=== PATIENT | male | born 1950 | race Caucasian/White ===

== ENCOUNTER 2016-09-17 15:56 | Emergency (ER) | payer MEDICARE, OTHER ==
[~2016-09-17] VITALS: Ht 189.2 cm; Wt 102.0 kg
[~2016-09-17 15:56] MED LIST: ATRV10T PO; HYDR12.55 PO; LOSA100T29 PO; METF500T4 PO; OMEP20CA11 PO; PARO20TA5 PO; [UNRECOGNIZED DRUG - SUPPLY]
[2016-09-17 15:59] VITALS: BP 152/91; PULSE 83; RESP 16; O2SAT 97
--- NOTE | 2016-09-17 16:41 | DRSVH ---
PROCEDURE: X-RAY RIGHT SHOULDER, MINIMUM TWO VIEWS ([id number]) INDICATIONS: fall off ladder TECHNIQUE: 3 views of the shoulder were acquired. COMPARISON: None. FINDINGS: Bones: No fractures or dislocations. No suspicious bony lesions. Visualized ribs appear intact. S evere AC joint degeneration. Mild glenohumeral degenerative joint disease. Soft tissues: No suspicious soft tissue calcifications. IMPRESSION: Right shoulder joint degeneration. No fracture Dictated by: Fabian Moon M.D. on 09/17/2016 at 16:39 Approved by: Fabian Moon M.D. on 09/17/2016 at 16:40
--- NOTE | 2016-09-17 16:52 | ED.REPORT ---
HPI-Extremity Problem Upper Date of Service Sep 17, 2016 ED Provider: Tato Corona MD A 66 year old male with a history of hypertension, anxiety, and hyperlipidemia presents to the ED complaining of right shoulder pain. The pt fell off of the last rung on a ladder today, landing on his right elbow and shoulder. He denies head trauma or loss of consciousness, as well as weakness, numbness, or tingling. The shoulder has been painful since with severely restricted range of motion. Nursing Notes Stated Complaint: R SHOULDER PAIN S/P FALL Chief Complaint: Extremity Trauma Nursing Notes Reviewed: Yes Allergies: Coded Allergies: Canjilon (Verified Allergy, Unknown, 09/17/16) hazelnut (Verified Allergy, Unknown, 09/17/16) Scheduled Atorvastatin (Lipitor) 10 Mg Tab 10 MG PO DAILY Hydrochlorothiazide (Hydrochlorothiazide) 12.5 Mg Tablet 12.5 MG PO DAILY Losartan Potassium (Losartan Potassium) 100 Mg Tablet 100 MG PO DAILY Metformin (Metformin) 500 Mg Tablet 500 MG PO TIDWM Omeprazole (Omeprazole) 20 Mg Capsule.dr 20 MG PO DAILY Scheduled PRN Ibuprofen (Ibuprofen) 800 Mg Tablet 800 MG PO TID PRN PRN For Pain Paroxetine (Paroxetine) 20 Mg Tablet 20 MG PO DAILY PRN PRN For Anxiety or Agitation Miscellaneous Medications ([cpap active]) General Time Seen by MD: 16:52 Chief Complaint Shoulder injury right Hx Obtained From: Patient Arrived By: Walk-in Onset Occurred: 1 - 4 hours ago Symptom Duration: Since onset Recent Healthcare: No recent doctor visit, No recent hospitalization Similar Sx Previous: No Past Medical History Past Medical History Sleep apnea, hernia anxiety/panic d/o hyperlipidemia lacerations to hand still in splints Reports: Hyperlipidemia, Hypertension Past Surgical History Prostate surgery Left finger Arthroscopy R knee Reports: Tonsillectomy Smoking History Never Smoker Social History Alcohol Use: 1-3 per day Drug Use: Denies drug use Other Social History: Occupation Retired, deputy director of nursing prior Ambulatory Status Independent Review of Systems Review of Systems Note: denies tingling Constitutional: Denies: Fever Musculoskeletal: Reports: Extremity pain, Joint pain, Denies: Back pain Skin: Denies Rash Neurologic: Denies: Change LOC, Numbness, Weakness Complete sys rev & neg: except as marked. Respiratory: Denies: Non-productive cough, Shortness of breath Cardiovascular: Denies: Chest pain Physical Exam Initial Vital Signs Vital Signs (First) Date Time Temp Pulse Resp B/P Pulse Ox O2 Delivery O2 Flow Rate FiO2 09/17/16 15:59 36.7 83 16 152/91 97 Room Air Initial VS: Reviewed General/Constitutional: Awake, Alert Neck: Atraumatic, Supple, Full range of motion Respiratory / Chest: Atraumatic, Breath sounds NL, Breath sounds = bilat, No respiratory distress Cardiovascular: Heart rate NL, Regular rhythm, Heart sounds NL RUE neurovascularly intact diffuse tenderness over right anterior shoulder no AC joint tenderness Skin: Atraumatic, Color NL, No rash, Warm, Dry Neurologic: Oriented X3, Speech NL, No motor deficits, No sensory deficits Head / Eyes: Atraumatic, Normocephalic, PERRL, EOMI ENT: Atraumatic, Airway patent, Mucous membranes moist Abdomen: Atraumatic, Soft, Non-tender Back: Atraumatic, Full range of motion Lower Extremity / Pelvis / MS: Atraumatic, Full range of motion Psychiatric: Affect NL, Mood NL Interpretation & Diagnostics X-Ray Interpretation Xray Interpretation: IMPRESSION: Right shoulder joint degeneration. No fracture Dictated by: Fabian Moon M.D. on 09/17/2016 at 16:39 Approved by: Fabian Moon M.D. on 09/17/2016 at 16:40 X-Ray Ordered: Shoulder right Interpretation / Wet Read by: Interpret - Radiologist Re-Eval/Medical Decision Med Decision/Clinical Course 66-year-old male presenting complaining of right shoulder pain status post falling off a ladder onto right shoulder. No neurological deficits. He did not hit his head or lose consciousness. Right upper extremity is neurovascularly intact. X-ray shows no fracture or dislocation. Likely sprain. Recommend range of motion exercises, NSAIDs, icing, follow-up with primary doctor. Source of Hx: Old records Re-Evaluation/Progress : Time of Eval: 16:52 Patient Status: Condition improved Re-Evaluation/Progress Note: Pt informed of radiology results and diagnosis during the initial interview. The plan for discharge is discussed. The pt understands and agrees with the plan. All questions are addressed at this time. Counseled Regarding: Diagnosis, Lab results, Need for follow-up, When/why to return to ED Discharge & Departure Impression: Primary Impression: Sprain of right shoulder Encounter type: initial encounter Shoulder sprain type: unspecified sprain Qualified Code: S43.401A - Unspecified sprain of right shoulder joint, initial encounter Disposition: Home Discharge Condition All VS Reviewed: Yes Condition: Stable Patient Instructions: Shoulder Sprain (ED) Additional Instructions: Your shoulder is not broken. Do not overburden the arm, but continue to use it to maintain your range of motion. Follow up with your primary care physician for further evaluation. Return to the emergency department if you develop any new or worsening symptoms. Referrals: Elan Tavarez MD (PCP) Scribe Attestation Portions of this note were transcribed by Dixie Vásquez I, Dr. Corona personally performed the history, physical exam and medical decision-making; I reviewed and confirmed the accuracy of the information in the transcribed note. Signed by: Eladio Abreu, 09/17/16 and 17:28. copies to: Elan Tavarez MD, Ben M MD Sep 17, 2016 16:52 DIXIE VÁSQUEZ Sep 17, 2016 17:15
[2016-09-17] MEDS ORDERED: IBUP800T28 PO (17:16)
[2016-09-17 17:21] VITALS: BP 154/84; PULSE 73; O2SAT 97
[2016-10-09] MEDS ORDERED: SILD50TA PO (14:35)
[2016-10-09] MEDS ORDERED: HYDR12.55 PO (14:35)
[2016-10-10] MEDS ORDERED: OMEG1CAP17 PO (08:21)
[2016-10-10] MEDS ORDERED: [UNRECOGNIZED DRUG - OTHER] PO (08:21)
[2016-10-10] MEDS ORDERED: LACT1CAP73 PO (08:21)
[2016-10-10] MEDS ORDERED: MULT1CAP33 PO (08:21)
== END 2016-09-17 17:16 | disposition home or self-care (01) ==
LOC: SED 15:56
DX: S43.401A Unspecified sprain of right shoulder joint, initial encounter (principal); W11.XXXA Fall on and from ladder, initial encounter; Y93.9 Activity, unspecified; Y92.9 Unspecified place or not applicable; Y99.8 Other external cause status; I10 Essential (primary) hypertension; E78.5 Hyperlipidemia, unspecified; Z79.84 Long term (current) use of oral hypoglycemic drugs